=== PATIENT | male | born 1975 | race Caucasian/White ===

== ENCOUNTER 2017-04-10 05:12 | Day surgery (SDC) | payer BC ==
[~2017-04-10] VITALS: Ht 180.3 cm; Wt 61.2 kg
--- NOTE | ~2017-04-10 | S ---
[facility] [place] [address] SURGICAL PATH RPT PROCEDURE Name: THI STEVENSON Room #: DEP [facility] [place]#: [id number] Admission: 04/10/17 Date of : 73 Discharge: 04/10/17 Report #: [id number] Path Case #: [id number] PATHOLOGY REPORT COLLECTION DATE: 04/10/2017 RECEIVED DATE: 04/10/2017 SUBMITTING PHYS: Dr. Reynaldo Barajas OTHER PHYS: SPECIMEN(S) RECEIVED: A.L4-L5 disc * * * * * * * * * * * * FINAL DIAGNOSIS: A. L4-L5 disc: - Fibrocartilage with reactive change. PATHOLOGIST: Salvatore Felix M.D. REPORT ELECTRONICALLY SIGNED BY: Salvatore Felix M.D. DATE/TIME: 04/11/2017 12:36 * * * * * * * * * * * * GROSS PATHOLOGY: Received in formalin labeled "Thi Stevenson, L4-L5 disc," are several pieces of glistening, fibrous tissue measuring 4.8 x 4.5 x 0.9 cm in aggregate dimensions, containing small fragments of possible bone. The tissue is submitted representatively in cassette A1, following decalcification. (TSD; 04/10/2017) CLINICAL HISTORY: Left L4-5 HNP INITIAL CPT CODE(S): A; 81739, 58705 Professional services performed by [facility] at [facility] [address], [place] [address] Technical services performed by [facility] at [address] [place] [address], [address], [place] [address]. [facility] [address] [place] [address] SURGICAL PATH RPT PROCEDURE Name: THI STEVENSON Room #: DEP [facility] [place]#: [id number] Admission: 04/10/17 Date of : 73 Discharge: 04/10/17 Report #: [id number] Path Case #: [id number] [address] PHONE: [phone] DIRECTOR: Oswald Conner M.D. * * * END OF REPORT * * *
--- NOTE | ~2017-04-10 | O ---
[facility] [place] [address] OPERATIVE REPORT Name: ELVATHI J Room #: DEP [facility].#: [id number] Admission: 04/10/17 Attend Phys: Reynaldo Barajas MD Discharge: 04/10/17 Date of : 73 Report #: [id number] THIS REPORT FOR: //name// CC: Reynaldo Barajas FAM alessandro ALMARAZ DATE OF SERVICE: 04/10/2017 PREOPERATIVE DIAGNOSIS: Herniated lumbar disk, L4-L5, left with radiculopathy. POSTOPERATIVE DIAGNOSIS: Herniated lumbar disk, L4-L5, left with radiculopathy. PROCEDURE: Decompressive laminectomy and diskectomy, L4-L5, left. SURGEON: Reynaldo Barajas M.D. INDICATIONS: This slender, fit, active 41-year-old gentleman complains of progressive persistent left-sided low back pain with radiating left leg pain and some weakness. His clinical and MRI findings are consistent with a herniated disk at L4-L5 toward the left side. He has tried conservative measures for quite a number of months without clear benefit. He is anxious now to go ahead with surgical laminectomy and diskectomy. I have explained preoperatively that he may have a slow postoperative recovery given his long period of disk herniation radiculopathy symptoms over the past 6 months. He understands well. He understands the potential risks as well as the benefits of surgery. DESCRIPTION OF PROCEDURE: The patient was taken to the operating room, where he was placed under general anesthesia. Prophylactic intravenous antibiotics were administered. He was turned to the prone position. The low back was meticulously prepped and draped. A skin incision was made just to the left of midline at the L4-L5 level. C-arm was used to identify the appropriate level. The incision was carried along the left paraspinal plane and the lamina were identified. A small laminotomy in the inferior aspect of L4 and the superior aspect of L5 was created. The ligamentum was excised. The dura and nerve root were found to be somewhat prominent and slightly reddened and inflamed, consistent with some chronic compression. The nerve root was carefully retracted toward the midline. The underlying disk was found to be herniated with a moderate amount of disk bulging through the annulus, extending out into the canal. This fragment was removed. A good deal of additional disk debris was removed from within the disk space, which nicely decompressed the disk and seemed to relieve any significant pressure on the nerve root. An intraoperative C-arm image was taken confirming that I was at the appropriate level. The disk was thoroughly debrided using pituitary rongeurs, removing any loose debris. The canal was carefully inspected across the midline and both proximally and distally to make sure no other extruded fragments persisted; none were [facility] [address] [place] [address] OPERATIVE REPORT Name: THI STEVENSON Room #: DEP [facility] [place]#: [id number] Admission: 04/10/17 Attend Phys: Reynaldo Barajas MD Discharge: 04/10/17 Date of : 73 Report #: [id number] identified. The nerve root seemed to be freed up nicely and appeared to be much improved. A small foraminotomy was performed tracing nerve root out laterally to make sure there were no further areas of compression. At this point, the wound was copiously irrigated. Good hemostasis was established. A 40 mg of Depo-Medrol were left in the epidural space around the nerve root. The laminotomy site was covered with a small sheet of Gelfoam soaked in thrombin. The muscle and fascia were closed with multiple 0 Vicryl sutures. The subcutaneous tissues were closed with 0 Vicryl, 2-0 Monocryl and the skin was closed with 2-0 Prolene, supplemented with Steri-Strips. The muscle and subcutaneous tissues were injected with about 15-20 mL of 0.25% Marcaine with epinephrine. A sterile dressing was applied. The patient was awakened and returned to recovery room in good condition. He will be monitored there for a suitable period and then most probably discharged home today. If he should have more discomfort or nausea, he may stay overnight. I will plan to see him back in the office in about 10-14 days. <ELECTRONICALLY SIGNED> By: Reynaldo Barajas MD 04/11/17 [id number] Reynaldo Barajas MD /nt
[~2017-04-10 05:12] MED LIST: IBUPROFEN 200200 M1 PO; NEURONTIN600 MG PO; ROBAXIN 750 MG750 M1 PO; TRAMADOL 50 MG50 MG PO; TYLENOL325 MG PO
[2017-04-10 08:09] VITALS: BP 151/102
[2017-04-10 11:46] VITALS: BP 151/102
== END 2017-04-10 12:35 | disposition home or self-care (01) ==
LOC: OR 05:12 → TBA 05:12 → OR 09:11
DX: M51.16 Intervertebral disc disorders with radiculopathy, lumbar region (principal); F17.200 Nicotine dependence, unspecified, uncomplicated; Z98.890 Other specified postprocedural states; Z79.899 Other long term (current) drug therapy
CPT/HCPCS: 50010; 50101; 50402; 50704; 50850; 56525; 62110; 62900; 70005